=== PATIENT | male | born 1950 | race Two or more races ===

== ENCOUNTER 2019-07-04 11:02 | Inpatient (IN) | payer MEDICARE, OTHER ==
[~2019-07-04] VITALS: Ht 170.2 cm; Wt 99.1 kg
[~2019-07-04 11:02] MED LIST: BENA10TA84
[2019-07-04] MEDS ORDERED: PANTOPRAZOLE 40 MG/10 ML VIAL INJ IV STA (11:03)
[2019-07-04] MEDS ORDERED: SODIUM CHLORIDE 0.9% 1,000 ML IVB ONE (11:03)
[2019-07-04] MEDS ORDERED: ONDANSETRON HCL 4 MG/2 ML VIAL IV ONE (11:15)
[2019-07-04] MEDS ORDERED: MORPHINE SULFATE 4 MG/ML SYR/VIAL IV ONE (11:15)
[2019-07-04 11:31] LABS: Basophils # (auto) 0.1 10 ^3/uL (0-0.2); Basophils % (auto) 1.4 % (0.0-2.0); Eosinophils # (auto) 0.3 10 ^3/uL (0-0.8); Eosinophils % (auto) 3.3 % (0.0-7.0); Hematocrit 38.5 % (41.0-53.0); Hemoglobin 12.3 g/dL (13.5-17.5); Lymphocytes # (auto) 1.7 10 ^3/uL (0.4-5.4); Lymphocytes % (auto) 18.6 % (10.0-50.0); Mean Corpuscular Hgb Conc. 31.9 g/dL (32.0-36.0); Mean Corpuscular Volume 84.4 fL (80.0-100.0); Monocytes # (auto) 0.9 10 ^3/uL (0-1.3); Monocytes % (auto) 9.4 % (0.0-12.0); Neutrophils # (auto) 6.1 10 ^3/uL (1.6-8.6); Neutrophils % (auto) 67.3 % (37.0-80.0); Platelet Count (auto) 360 10^3/uL (140-450); Red Blood Cells 4.56 10^6/uL (4.5-5.90); Red Cell Distribution Width 15.6 % (11.8-14.3); White Blood Cell 9.1 10^3/uL (4.4-10.8)
[2019-07-04 11:44] LABS: Albumin 2.9 g/dL (3.4-5.0); Calcium 8.7 mg/dL (8.5-10.1); Potassium 3.9 mmol/L (3.5-5.1)
[2019-07-04 11:48] LABS: Bilirubin, Total 0.5 mg/dL (0.2-1.0); Total Protein 9.2 g/dL (6.4-8.2)
[2019-07-04] MEDS ORDERED: metroNIDAZOLE 500MG/100ML 100 ML IV ONE (12:45)
[2019-07-04 13:30] LABS: Urine Bacteria NONE SEEN /hpf (None Seen); Urine Blood Negative /uL (Negative); Urine Specific Gravity 1.008 (1.001-1.035); Urine WBC 3 /hpf (0 - 3)
[2019-07-04] MEDS ORDERED: LABETALOL HCL 5 MG/ML 4ML SYRINGE IV PRN (14:45)
[2019-07-04] MEDS ORDERED: ONDANSETRON HCL 4 MG/2 ML VIAL IV PRN (14:45)
[2019-07-04] MEDS ORDERED: MORPHINE SULF INJ 2 MG/ML SYRINGE 1ML IV PRN (14:45)
[2019-07-04] MEDS ORDERED: NITROGLYCERIN 0.4 MG SL TAB SL PRN (14:45)
[2019-07-04] MEDS ORDERED: IOHEXOL 300 MG/ML 100ML BOTTLE IJ ONE (14:55)
[2019-07-04] MEDS: HYDROmorphone HCL 2 MG/ML VL IV PRN ×3 (15:22→21:57)
[2019-07-04] MEDS: D5W/SOD CHLO 0.9% 1,000 ML IV SCH ×2 (15:27→17:38)
[2019-07-04 15:58] VITALS: BP 128/77
[2019-07-04 17:00] VITALS: BP 132/70
[2019-07-04] MEDS: metroNIDAZOLE 500MG/100ML 100 ML IV SCH (21:57)
[2019-07-04 22:00] VITALS: BP 136/80
[2019-07-04] MEDS: FAMOTIDINE (10MG/ML) 2ML VL IV SCH (22:08)
[2019-07-05] MEDS: D5W/SOD CHLO 0.9% 1,000 ML IV SCH ×2 (00:23→12:06)
[2019-07-05] MEDS: HYDROmorphone HCL 2 MG/ML VL IV PRN ×3 (03:22→11:42)
[2019-07-05 05:00] VITALS: BP 110/69
[2019-07-05] MEDS: metroNIDAZOLE 500MG/100ML 100 ML IV SCH (05:56)
[2019-07-05 06:15] LABS: Basophils # (auto) 0.1 10 ^3/uL (0-0.2); Basophils % (auto) 0.6 % (0.0-2.0); Eosinophils # (auto) 0.1 10 ^3/uL (0-0.8); Eosinophils % (auto) 1.3 % (0.0-7.0); Hematocrit 36.5 % (41.0-53.0); Hemoglobin 12.3 g/dL (13.5-17.5); Lymphocytes # (auto) 1.2 10 ^3/uL (0.4-5.4); Lymphocytes % (auto) 12.5 % (10.0-50.0); Mean Corpuscular Hemoglobin 27.5 pg (28.0-32.0); Mean Corpuscular Hgb Conc. 33.6 g/dL (32.0-36.0); Mean Corpuscular Volume 81.9 fL (80.0-100.0); Monocytes % (auto) 9.6 % (0.0-12.0); Neutrophils # (auto) 7.6 10 ^3/uL (1.6-8.6); Nucleated Red Blood Cells % 0.1 %; Platelet Count (auto) 342 10^3/uL (140-450); Red Blood Cells 4.46 10^6/uL (4.5-5.90); Red Cell Distribution Width 15.5 % (11.8-14.3)
[2019-07-05 06:31] LABS: INR 1.13 (0.9-1.15); Partial Thromboplastin Time 28.7 sec (23.64-32.05)
[2019-07-05 06:35] LABS: Albumin 2.5 g/dL (3.4-5.0); Calcium 8.6 mg/dL (8.5-10.1); Potassium 3.8 mmol/L (3.5-5.1)
[2019-07-05 06:42] LABS: BUN/Creatinine Ratio 11.8; Bilirubin, Total 2.3 mg/dL (0.2-1.0); Total Protein 8.6 g/dL (6.4-8.2)
[2019-07-05 08:00] VITALS: BP 91/77
[2019-07-05] MEDS ORDERED: levoFLOXacin 500MG 100 ML IV SCH (10:00)
[2019-07-05] MEDS: FAMOTIDINE (10MG/ML) 2ML VL IV SCH (10:13)
[2019-07-05] MEDS ORDERED: PIPERACILLIN-TAZO 4.5GM 100 ML IV ONE (10:30)
[2019-07-05 12:00] VITALS: BP 92/65
[2019-07-05] MEDS ORDERED: PIPERACILLIN-TAZOB 3.375GM 100 ML IV SCH (18:00)
[2019-07-07 09:27] LABS: Hepatitis B Surface Antibody Negative
[2019-07-07 09:59] LABS: Hepatitis A Total Antibody Positive
[2019-07-07 11:29] LABS: Hepatitis B Core Total AB Negative; Hepatitis B Surface Antigen Negative (Negative); Hepatitis C Antibody Negative (Negative)
== END 2019-07-05 16:30 | disposition left against medical advice (07) | DRG 444 ==
LOC: ER 11:02 → EDBD 11:02 → TELE 11:03 → TELE-WESTW 16:00
PROVIDERS: ADMIT Nurse Practitioner Acute Care; ATTEND Internal Medicine
DX: K81.9 Cholecystitis, unspecified (principal); I50.23 Acute on chronic systolic (congestive) heart failure; K83.1 Obstruction of bile duct; E66.9 Obesity, unspecified; Z53.29 Procedure and treatment not carried out because of patient's decision for other reasons; R16.0 Hepatomegaly, not elsewhere classified; I11.0 Hypertensive heart disease with heart failure; E78.5 Hyperlipidemia, unspecified; Z79.899 Other long term (current) drug therapy; Z86.711 Personal history of pulmonary embolism; Z68.34 Body mass index [BMI] 34.0-34.9, adult
CPT/HCPCS: 36415; 74177; 76705; 80053; 81001; 82105; 82150; 83615; 83690; 85025; 85379; 85610; 85730; 86704; 86706; 86708; 86803; 87340; 93005; 93306; 96374; 96375; C9113; G0378; J1956; J2405; J2543; J3490; J7042